=== PATIENT | male | born 1970 | race African-American/Black ===

== ENCOUNTER 2016-11-10 10:23 | Observation (INO) | payer MEDICARE, OTHER ==
[2016-11-10 10:26] VITALS: BMI 35.2
--- NOTE | 2016-11-10 11:04 | PDOC ---
History of Present Illness - General History Source: Patient Exam Limitations: No Limitations - History of Present Illness Initial Comments: 11/10/16 11:14 The patient is a 46 year old male, with a significant past medical history of hypothyroidism, HTN, and asthma, who presents to the emergency department with chest pain. The patient reports having acute onset of chest pain while sitting down about 3 days ago. The patient reports his chest pain is intermittent with episodes lasting a couple of minutes. He ranks his chest pain a 5/10 in pain intensity during the episodes, and relates left arm numbness and occasional SOB with his chest pain. He reports his chest pain is worse when he is stressed. He denies any chest pain while walking. He also notes difficulty sleeping at night secondary to pain, waking up multiple times throughout the night. He notes his chest pain is mostly localized at the left side of his chest, but notes recently his chest pain has been radiating to the right side of his chest and notes yesterday the left side of his face and jaw locked up during one of his chest pain episodes. He reports taking a baby aspirin this morning with no alleviation of his pain. He denies any pleuritic pain. He denies any recent fevers, chills, headache or dizziness. He denies any recent nausea, vomit, diarrhea or constipation. Allergies: Penicillin (hives) Past surgical history: Cardiac Stents x 3 Social History: Nonsmoker. Denies EtOH use and recreational drug use. 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 Physician: <Fabian Roy - Last Filed: 11/10/16 11:25> <Renetta Rose - Last Filed: 11/10/16 14:39> - General Stated Complaint: CHEST PAIN Time Seen by Provider: 11/10/16 10:34 Past History <Fabian Roy - Last Filed: 11/10/16 11:25> - Past Medical History Asthma: Yes Cardiac Disorders: Yes Hypercholesterolemia: Yes Seizures: No Thyroid Disease: Yes (hypothyroid) - Surgical History Cardiac Surgery: Yes (STENTS) - Immunization History Immunization Up to Date: Yes - Psycho/Social/Smoking Cessation Hx Anxiety: No Suicidal Ideation: No Smoking Status: No Smoking History: Never smoked Number of Cigarettes Smoked Daily: 0 Hx Alcohol Use: No Drug/Substance Use Hx: No Substance Use Type: None Hx Substance Use Treatment: No <Renetta Rose - Last Filed: 11/10/16 14:39> - Past Medical History Allergies/Adverse Reactions: Allergies Allergy/AdvReac Type Severity Reaction Status Date / Time Penicillins Allergy Intermediate Hives Verified 11/10/16 10:26 Home Medications: Ambulatory Orders Levothyroxine [Synthroid -] 125 mcg PO DAILY 12/16/12 Aspirin [ASA -] 81 mg PO DAILY 03/17/16 Atorvastatin Ca [Lipitor] 40 mg PO HS 03/17/16 Lisinopril [Zestril] 2.5 mg PO HS 03/17/16 Metoprolol Succinate [Toprol Xl -] 25 mg PO DAILY 03/17/16 Ticagrelor [Brilinta] 90 mg PO BID 03/17/16 Review of Systems - Review of Systems Able to Perform ROS?: Yes Comments:: 11/10/16 11:14 GENERAL/CONSTITUTIONAL: No fever or chills. No weakness. HEAD, EYES, EARS, NOSE AND THROAT: No change in vision. No ear pain or discharge. No sore throat. CARDIOVASCULAR: +chest pain w L arm numbness and shortness of breath. RESPIRATORY: No cough, wheezing, or hemoptysis. GASTROINTESTINAL: No nausea, vomiting, diarrhea or constipation. GENITOURINARY: No dysuria, frequency, or change in urination. MUSCULOSKELETAL: No joint or muscle swelling or pain. No neck or back pain. SKIN: No rash NEUROLOGIC: No headache, vertigo, loss of consciousness, or change in strength/ sensation. ENDOCRINE: No increased thirst. No abnormal weight change. HEMATOLOGIC/LYMPHATIC: No anemia, easy bleeding, or history of blood clots. ALLERGIC/IMMUNOLOGIC: No hives or skin allergy. <Fabian Roy - Last Filed: 11/10/16 11:25> *Physical Exam - Vital Signs Last Vital Signs Temp Pulse Resp BP Pulse Ox 98.0 F 85 20 132/76 98 11/10/16 10:24 11/10/16 10:24 11/10/16 10:24 11/10/16 10:24 11/10/16 10:24 - Physical Exam Comments: 11/10/16 11:14 GENERAL: Awake, alert, and fully oriented, in no acute distress HEAD: No signs of trauma EYES: PERRLA, EOMI, sclera anicteric, conjunctiva clear ENT: Auricles normal inspection, hearing grossly normal, nares patent, oropharynx clear without exudates. Moist mucosa NECK: Normal ROM, supple, no lymphadenopathy, JVD, or masses LUNGS: Breath sounds equal, clear to auscultation bilaterally. No wheezes, and no crackles HEART: Regular rate and rhythm, normal S1 and S2, no murmurs, rubs or gallops ABDOMEN: Soft, nontender, normoactive bowel sounds. No guarding, no rebound. No masses EXTREMITIES: Normal range of motion, no edema. No clubbing or cyanosis. No cords, erythema, or tenderness. No LE edema. NEUROLOGICAL: Cranial nerves II through XII grossly intact. A&O x3. Normal speech, normal gait SKIN: Warm, Dry, normal turgor, no rashes or lesions noted. <Fabian Roy - Last Filed: 11/10/16 11:25> - Vital Signs Last Vital Signs Temp Pulse Resp BP Pulse Ox 98.0 F 85 20 132/76 98 11/10/16 10:24 11/10/16 10:24 11/10/16 10:24 11/10/16 10:24 11/10/16 10:24 <Renetta Rose - Last Filed: 11/10/16 14:39> Heart Score/ECG Review - History History: Highly suspicious - Electrocardiogram EKG: Non specific repolarization disturbance - Age Age: 45-65 - Risk Factors Risk Factors Heart Score: Yes Hx Hypercholesterolemia, Yes Hx Hypertension, Yes Positive family hx of cardiac disease, Yes Hx Obesity Based on the list above the patient has:: >/=3 risk factors or Hx atherosclerotic disease - Troponin Troponin: </= normal limit - Score Heart Score - Total: 6 #1 ECG reviewed & interpreted by me at: 10:30 11/10/16 11:16 NSR, rate 80, normal axis and intervals, no SHANTEL, no significant change compared to EKG from 03/2016 <Renetta Rose - Last Filed: 11/10/16 14:39> ED Treatment Course - LABORATORY CBC & Chemistry Diagram: 11/10/16 11:41 11/10/16 11:41 <Renetta Rose Last Filed: 11/10/16 14:39> Medical Decision Making - Medical Decision Making 11/10/16 11:22 57yo M hx CAD s/p 3 stents p/w 3 days of on and off LSCP at times radiating to the R chest a/w L arm numbness at rest and with exertion. Concern for ACS vs unstable angina. Pt high risk for ACS given medical history and multiple risk factors. -cbc, bmp, lfts, trop, coags -CXR -complete dose of ASA -contact pt's roll sheeting cutter CBC,CMP WBC 7.4 K/mm3 (4.0-10.0) 11/10/16 11:41 RBC 4.84 M/mm3 (4.00-5.60) 11/10/16 11:41 Hgb 13.0 GM/dL (11.7-16.9) 11/10/16 11:41 Hct 40.5 % (35.4-49) 11/10/16 11:41 MCV 83.6 fl (80-96) 11/10/16 11:41 MCH 26.9 pg (25.7-33.7) 11/10/16 11:41 MCHC 32.2 g/dl (32.0-35.9) 11/10/16 11:41 RDW 15.8 % (11.9-15.9) 11/10/16 11:41 Plt Count 232 K/MM3 (134-434) D 11/10/16 11:41 MPV 7.7 fl (7.5-11.1) 11/10/16 11:41 Neutrophils % 55.0 % (42.8-82.8) 11/10/16 11:41 Lymphocytes % 29.8 % (8-40) D 11/10/16 11:41 Monocytes % 10.3 % (3.8-10.2) H 11/10/16 11:41 Eosinophils % 3.7 % (0-4.5) D 11/10/16 11:41 Basophils % 1.2 % (0-2.0) 11/10/16 11:41 Sodium 140 mmol/L (136-145) 11/10/16 11:41 Potassium 4.2 mmol/L (3.5-5.1) 11/10/16 11:41 Chloride 104 mmol/L (98-107) 11/10/16 11:41 Carbon Dioxide 27 mmol/L (21-32) 11/10/16 11:41 Anion Gap 9 (8-16) 11/10/16 11:41 BUN 12 mg/dL (7-18) 11/10/16 11:41 Creatinine 1.2 mg/dL (0.7-1.3) 11/10/16 11:41 Creat Clearance w eGFR > 60 (>60) 11/10/16 11:41 Random Glucose 103 mg/dL (74-106) D 11/10/16 11:41 Calcium 8.8 mg/dL (8.5-10.1) 11/10/16 11:41 Magnesium 2.0 mg/dL (1.8-2.4) 11/10/16 11:41 Total Bilirubin 0.5 mg/dL (0.2-1.0) 11/10/16 11:41 AST 28 U/L (15-37) D 11/10/16 11:41 ALT 48 U/L (12-78) D 11/10/16 11:41 Alkaline Phosphatase 74 U/L (45-117) D 11/10/16 11:41 Creatine Kinase 182 IU/L (39-308) 11/10/16 11:41 Creatine Kinase Index 0.5 % (0.0-5.0) 11/10/16 11:41 CK-MB (CK-2) < 1.000 ng/mL (0.5-3.6) 11/10/16 11:41 Troponin I < 0.02 ng/ml (0.00-0.05) 11/10/16 11:41 Total Protein 7.4 g/dl (6.4-8.2) 11/10/16 11:41 Albumin 4.0 g/dl (3.4-5.0) 11/10/16 11:41 Troponin, BNP 11/10/16 11:41 Troponin I < 0.02 11/10/16 13:54 Dr. Mckeon at the bedside, would like patient admitted for further monitoring and echo. Hospitalist paged, awaiting call back <Nassef,Jorgemna - Last Filed: 11/10/16 14:39> *DC/Admit/Observation/Transfer - Attestations Scribe Attestion: 11/10/16 11:15 Documentation prepared by Fabian Roy, acting as medical laboratory technician for Renetta Rose MD. <Fabian Roy - Last Filed: 11/10/16 11:25> - Discharge Dispostion Admit: Yes <Renetta Rose - Last Filed: 11/10/16 14:39> Diagnosis at time of Disposition: Chest pain Qualifiers: Chest pain type: unspecified Qualified Code(s): R07.9 - Chest pain, unspecified - Discharge Dispostion Condition at time of disposition: Stable - Referrals Referrals: Niecy Gaona [Primary Care Provider] -
[2016-11-10] MEDS ORDERED: ASPIRIN 81 MG CHEWABLE TABLETS PO ONE (11:09)
[2016-11-10] MEDS ORDERED: ASPIRIN 81 MG CHEWABLE TABLETS ONE (11:20)
[2016-11-10 11:44] LABS: BASOPHIL 1.2 % (0-2.0); EOSINOPHIL 3.7 % (0-4.5); MCH 26.9 pg (25.7-33.7); MCHC 32.2 g/dl (32.0-35.9); MEAN CELL VOLUME 83.6 fl (80-96); MEAN PLT VOLUME 7.7 fl (7.5-11.1); PLATELET COUNT 232 K/MM3 (134-434); RDW 15.8 % (11.9-15.9); WHITE BLOOD COUNT 7.4 K/mm3 (4.0-10.0)
[2016-11-10 11:56] LABS: INR 1.08 (0.82-1.09); PROTHROMBIN TIME (PATIENT) 11.9 SEC (9.98-11.88)
[2016-11-10 12:26] LABS: ANION GAP 9 (8-16); BILIRUBIN,TOTAL 0.5 mg/dL (0.2-1.0); CALCIUM 8.8 mg/dL (8.5-10.1); CO2 27 mmol/L (21-32); CREATININE 1.2 mg/dL (0.7-1.3); GLUCOSE,RANDOM 103 mg/dL (74-106); SGOT/AST 28 U/L (15-37); SGPT/ALT 48 U/L (12-78); TOT PROT 7.4 g/dl (6.4-8.2)
[2016-11-10 12:28] LABS: ALK PHOS 74 U/L (45-117); CPK 182 IU/L (39-308); TROPONIN I < 0.02 ng/ml (0.00-0.05)
--- NOTE | 2016-11-10 13:57 | CON.CARD ---
Consult Consult Specialty:: Cardiology Reason for Consultation:: chest pain - History of Present Illness History of Present Illness: The patient is a 46 year old male, with a significant past medical history of hypothyroidism, HTN, and asthma, who presents to the emergency department with chest pain. The patient reports having acute onset of chest pain while sitting down about 3 days ago. The patient reports his chest pain is intermittent with episodes lasting a couple of minutes. He ranks his chest pain a 5/10 in pain intensity during the episodes, and relates left arm numbness and occasional SOB with his chest pain. He reports his chest pain is worse when he is stressed. He denies any chest pain while walking. He also notes difficulty sleeping at night secondary to pain, waking up multiple times throughout the night. He notes his chest pain is mostly localized at the left side of his chest, but notes recently his chest pain has been radiating to the right side of his chest and notes yesterday the left side of his face and jaw locked up during one of his chest pain episodes. He reports taking a baby aspirin this morning with no alleviation of his pain. He denies any pleuritic pain. He denies any recent fevers, chills, headache or dizziness. He denies any recent nausea, vomit, diarrhea or constipation. Allergies: Penicillin (hives) Past surgical history: Cardiac Stents x 3 Social History: Nonsmoker. Denies EtOH use and recreational drug use. 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 80% OM2, 90% RPLS/crux. April 22, 2016 - History Source History Provided By: Patient, Medical Record - Past Medical History Cardio/Vascular: Yes: CAD, HTN, Hyperlipdemia Endocrine: Yes: Hypothyroidism - Alcohol/Substance Use Hx Alcohol Use: No - Smoking History Smoking history: Never smoked Aproximately how many cigarettes per day: 0 Home Medications - Allergies Allergies/Adverse Reactions: Allergies Allergy/AdvReac Type Severity Reaction Status Date / Time Penicillins Allergy Intermediate Hives Verified 11/10/16 10:26 - Home Medications Home Medications: Ambulatory Orders Levothyroxine [Synthroid -] 125 mcg PO DAILY 12/16/12 Aspirin [ASA -] 81 mg PO DAILY 03/17/16 Atorvastatin Ca [Lipitor] 40 mg PO HS 03/17/16 Lisinopril [Zestril] 2.5 mg PO HS 03/17/16 Metoprolol Succinate [Toprol Xl -] 25 mg PO DAILY 03/17/16 Ticagrelor [Brilinta] 90 mg PO BID 03/17/16 Review of Systems - Review of Systems Constitutional: reports: No Symptoms Eyes: reports: No Symptoms HENT: reports: No Symptoms Neck: reports: No Symptoms Cardiovascular: reports: Chest Pain Gastrointestinal: reports: No Symptoms Genitourinary: reports: No Symptoms Breasts: reports: No Symptoms Reported Musculoskeletal: reports: No Symptoms Integumentary: reports: No Symptoms Neurological: reports: No Symptoms Endocrine: reports: No Symptoms Hematology/Lymphatic: reports: No Symptoms Psychiatric: reports: No Symptoms Vital Signs: Vital Signs Temperature 98.0 F 11/10/16 10:24 Pulse Rate 85 11/10/16 10:24 Respiratory Rate 20 11/10/16 10:24 Blood Pressure 132/76 11/10/16 10:24 O2 Sat by Pulse Oximetry (%) 98 11/10/16 10:24 Constitutional: Yes: Well Nourished, No Distress, Calm Eyes: Yes: WNL, Conjunctiva Clear, EOM Intact HENT: Yes: WNL, Atraumatic, Normocephalic Neck: Yes: WNL, Supple, Trachea Midline Respiratory: Yes: WNL, Regular, CTA Bilaterally Gastrointestinal: Yes: WNL, Normal Bowel Sounds Renal/: Yes: WNL Cardiovascular: Yes: WNL, Regular Rate and Rhythm Musculoskeletal: Yes: WNL Extremities: Yes: WNL Integumentary: Yes: WNL Neurological: Yes: WNL, Alert, Oriented ...Motor Strength: WNL Psychiatric: Yes: WNL, Alert, Oriented - Other Data Labs, Other Data: CBC, BMP 11/10/16 11:41 11/10/16 11:41 INR, PTT INR 1.08 (0.82-1.09) 11/10/16 11:41 Troponin, BNP 11/10/16 11:41 Troponin I < 0.02 Troponin, BNP 11/10/16 11:41 Troponin I < 0.02 Imaging - Results Chest X-ray: Pending, Image Reviewed EKG: Image Reviewed (sr wnl) Problem List - Problems (1) Chest pain Code(s): R07.9 - CHEST PAIN, UNSPECIFIED Qualifiers: Chest pain type: unspecified Qualified Code(s): R07.9 - Chest pain, unspecified (2) Eloped Code(s): Z91.19 - PATIENT'S NONCOMPLIANCE W OTH MEDICAL TREATMENT AND REGIMEN (3) Low back pain Code(s): M54.5 - LOW BACK PAIN (4) Right groin pain Code(s): R10.30 - LOWER ABDOMINAL PAIN, UNSPECIFIED (5) SOB (shortness of breath) on exertion Code(s): R06.02 - SHORTNESS OF BREATH Assessment/Plan chest pain sx s/p PCI LCx 03/11/16 - marked improvement of his angina and angina equivalent d LAD 90% RADHA of p,m,d RCA and diffuse 30% 3VD. 80% OM2, 90% RPLS/crux. April 22, 2016 Hypertension Hyperlipidemia Hypothyroidism Plan r/o mi echo telemetry MIBI stress test in am check lipids cont DAPT
--- NOTE | 2016-11-10 15:14 | EKG ---
Test Reason : Blood Pressure : / mmHG Vent. Rate : 080 BPM Atrial Rate : 080 BPM P-R Int : 174 ms QRS Dur : 084 ms QT Int : 350 ms P-R-T Axes : 052 002 009 degrees QTc Int : 403 ms NORMAL SINUS RHYTHM NORMAL ECG WHEN COMPARED WITH ECG OF 17-MAR-2016 12:44, NO SIGNIFICANT CHANGE WAS FOUND Confirmed by STEW TSE MD ([id number]) on 11/10/2016 3:13:55 PM Referred By: Confirmed By:STEW TSE MD
--- NOTE | 2016-11-10 17:28 | HP ---
Admitting History and Physical - Admission Chief Complaint: chest pain History of Present Illness: HPI: This 46 year old male with hx of CAD stents x3, HTN, HLD, hypothroidism, asthma presented to the ED with 3 days of midsternal to left sided chest pain LUE association. The patient said for three days the pain has lingered around longer that it normal does and it feels similar to before his (sent) surgery. He did feel some dizziness as well. He takes his medications regularly, he denies fever, chills, palpitations, changes in bowel or urinary habits or weight loss. At present his chest pain is gone. 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 History of Recent Travel: No Home Medications - Allergies Allergies/Adverse Reactions: Allergies Allergy/AdvReac Type Severity Reaction Status Date / Time Penicillins Allergy Intermediate Hives Verified 11/10/16 10:26 - Home Medications Home Medications: Ambulatory Orders Levothyroxine [Synthroid -] 125 mcg PO DAILY 12/16/12 Aspirin [ASA -] 81 mg PO DAILY 03/17/16 Atorvastatin Ca [Lipitor] 40 mg PO HS 03/17/16 Lisinopril [Zestril] 5 mg PO HS 03/17/16 Metoprolol Succinate [Toprol Xl -] 25 mg PO DAILY 03/17/16 Clopidogrel Bisulfate [Plavix -] 75 mg PO DAILY 11/10/16 Review of Systems - Review of Systems Constitutional: reports: No Symptoms Eyes: reports: No Symptoms HENT: reports: No Symptoms Neck: reports: No Symptoms Cardiovascular: reports: Chest Pain Gastrointestinal: reports: No Symptoms Genitourinary: reports: No Symptoms Musculoskeletal: reports: Extremity Pain (left) Integumentary: reports: No Symptoms Neurological: reports: No Symptoms Endocrine: reports: No Symptoms Hematology/Lymphatic: reports: No Symptoms Psychiatric: reports: No Symptoms Physical Examination Vital Signs: Vital Signs Temperature 98.0 F 11/10/16 10:24 Pulse Rate 62 11/10/16 14:56 Respiratory Rate 16 11/10/16 14:56 Blood Pressure 130/85 11/10/16 14:56 O2 Sat by Pulse Oximetry (%) 100 11/10/16 15:00 Constitutional: Yes: No Distress Eyes: Yes: Conjunctiva Clear HENT: Yes: Atraumatic Neck: Yes: Supple Cardiovascular: Yes: Regular Rate and Rhythm, S1, S2 Respiratory: Yes: CTA Bilaterally, Accessory Muscle Use Gastrointestinal: Yes: Normal Bowel Sounds, Soft Renal/: Yes: WNL Musculoskeletal: Yes: WNL Extremities: Yes: WNL Edema: No Neurological: Yes: Alert, Oriented, Cran Nerves II-XII Intact Psychiatric: Yes: Alert, Oriented Imaging - Results Chest X-ray: Report Reviewed (normal), Image Reviewed EKG: Report Reviewed, Image Reviewed (NSR) Problem List - Problems (1) Chest pain Code(s): R07.9 - CHEST PAIN, UNSPECIFIED Qualifiers: Chest pain type: unspecified Qualified Code(s): R07.9 - Chest pain, unspecified (2) HTN (hypertension) Code(s): I10 - ESSENTIAL (PRIMARY) HYPERTENSION (3) CAD (coronary artery disease) Code(s): I25.10 - ATHSCL HEART DISEASE OF [place] CORONARY ARTERY W/O ANG PCTRS (4) Adult hypothyroidism Code(s): E03.9 - HYPOTHYROIDISM, UNSPECIFIED (5) HLD (hyperlipidemia) Code(s): E78.5 - HYPERLIPIDEMIA, UNSPECIFIED Assessment/Plan 46 year old male admitted with chest pain Plan: 1. Chest pain - s/p full dose asa in ED - ECHO shows lvsf normal, normal EF, trace MR, RVSF nml - Continue ASA, plavix - Telemetry monitoring - Follow serial trops - Stess test in AM - Dr. Reed seeing 2. CAD s/p stents - Continue Plavix - ASA - Metoprolol - Statin - Lipid panel 3. Hypothyroidism - Synthroid 125mcg - Check tsh 4. HTN - Lisinopril - BB 5. Nutrition - NPO afternight Visit type - Emergency Visit Emergency Visit: Yes ED Registration Date: 11/10/16 Care time: The patient presented to the Emergency Department on the above date and was hospitalized for further evaluation of their emergent condition. - New Patient This patient is new to me today: Yes Date on this admission: 11/10/16 - Critical Care Critical Care patient: No
[2016-11-10] MEDS ORDERED: morphine CARPU-JECT 4 MG/1 ML DISP.SYRIN IVPUSH PRN (17:36)
[2016-11-10] MEDS: HEPARIN NA (PORCINE) 5,000 UNITS/ML 1ML VIAL SQ SCH ×2 (18:20→21:59)
[2016-11-10 20:26] LABS: CPK 171 IU/L (39-308); TROPONIN I < 0.02 ng/ml (0.00-0.05)
[2016-11-10] MEDS ORDERED: ATORVASTATIN CA 40 MG TABLET (FP) PO SCH (22:00)
[2016-11-10] MEDS ORDERED: LISINOPRIL 5 MG TABLET (FP) PO SCH (22:00)
[2016-11-11] MEDS: HEPARIN NA (PORCINE) 5,000 UNITS/ML 1ML VIAL SQ SCH (06:12)
[2016-11-11] MEDS ORDERED: LEVOTHYROXINE NA 125 MCG TABLET (FP) PO SCH (07:00)
[2016-11-11 07:47] LABS: EOSINOPHIL 3.9 % (0-4.5); MCH 27.4 pg (25.7-33.7); MCHC 32.5 g/dl (32.0-35.9); MEAN CELL VOLUME 84.2 fl (80-96); NEUTROPHILS 52.7 % (42.8-82.8); PLATELET COUNT 236 K/MM3 (134-434); RDW 15.8 % (11.9-15.9); WHITE BLOOD COUNT 6.8 K/mm3 (4.0-10.0)
[2016-11-11 08:47] LABS: ALBUMIN 3.9 g/dl (3.4-5.0); ALK PHOS 73 U/L (45-117); ANION GAP 5 (8-16); BILIRUBIN,TOTAL 0.5 mg/dL (0.2-1.0); CALCIUM 9.1 mg/dL (8.5-10.1); CHOLESTEROL 138 mg/dL (50-200); CO2 31 mmol/L (21-32); CREATININE 1.1 mg/dL (0.7-1.3); GLUCOSE,RANDOM 89 mg/dL (74-106); LDL CHOLESTEROL (ONLY SJRH) 71 mg/dL (5-100); MAGNESIUM 2.2 mg/dL (1.8-2.4); PHOSPHOROUS 2.8 mg/dL (2.5-4.9); SGOT/AST 32 U/L (15-37); SGPT/ALT 50 U/L (12-78); TOT PROT 7.3 g/dl (6.4-8.2); TROPONIN I < 0.02 ng/ml (0.00-0.05)
[2016-11-11] MEDS ORDERED: ASPIRIN 81 MG CHEWABLE TABLETS PO SCH (10:00)
[2016-11-11] MEDS ORDERED: CLOPIDOGREL BISULFATE 75 MG TABLET (FP) PO SCH (10:00)
[2016-11-11] MEDS ORDERED: METOPROLOL SUCCINATE 25 MG TAB.SR.24H (FP) PO SCH (10:00)
--- NOTE | 2016-11-11 10:42 | PN ---
Progress Note, Physician Chief Complaint: Pt denies chest pain or dyspnea. - Current Medication List Current Medications: Active Medications Aspirin (Asa -) 81 mg PO DAILY [facility] Atorvastatin Calcium (Lipitor -) 40 mg PO HS [facility] Last Admin: 11/10/16 21:59 Dose: 40 mg Clopidogrel Bisulfate (Plavix -) 75 mg PO DAILY [facility] Heparin Sodium (Porcine) (Heparin -) 5,000 unit SQ TID [facility] Last Admin: 11/11/16 06:12 Dose: 5,000 unit Levothyroxine Sodium (Synthroid -) 125 mcg PO DAILY@0700 [facility] Last Admin: 11/11/16 06:08 Dose: Not Given Lisinopril (Prinivil) 5 mg PO HS [facility] Last Admin: 11/10/16 21:59 Dose: 5 mg Metoprolol Succinate (Toprol Xl -) 25 mg PO DAILY [facility] Morphine Sulfate (Morphine Injection -) 1 mg IVPUSH Q4H PRN PRN Reason: PAIN - Objective Vital Signs: Vital Signs Temperature 97.5 F L 11/11/16 06:00 Pulse Rate 74 11/11/16 06:00 Respiratory Rate 18 11/11/16 06:00 Blood Pressure 107/64 11/11/16 06:00 O2 Sat by Pulse Oximetry (%) 97 11/11/16 06:00 Labs: CBC, BMP 11/11/16 05:35 11/11/16 05:35 INR, PTT INR 1.08 (0.82-1.09) 11/10/16 11:41
[2016-11-11 11:51] LABS: THYROID STIMULATING HORMONE 0.28 uIU/ml (0.358-3.74)
--- NOTE | 2016-11-11 13:39 | DS ---
Physical Exam: SUBJECTIVE: Patient seen and examined he feels well he has no complaints. He mentioned his synthroid was increased to 137 4-5 months ago OBJECTIVE: Vital Signs Period Temp Pulse Resp BP Sys/Cardenas Pulse Ox Last 24 Hr 97.5 F-98.4 F 68-75 18-22 107-121/64-77 97-100 PE Neuro: alert, awake, cn 2-12intact Pulm: CTAB CV: s 1 s2 rrr no mrg Abd: s nt nd + bs Ext: warm, no le edema Laboratory Results - last 24 hr 11/10/16 11/11/16 11/11/16 18:15 05:35 05:35 WBC 6.8 RBC 4.88 Hgb 13.4 Hct 41.1 MCV 84.2 MCH 27.4 MCHC 32.5 RDW 15.8 Plt Count 236 MPV 8.0 Neutrophils % 52.7 Lymphocytes % 31.7 Monocytes % 10.7 H Eosinophils % 3.9 Basophils % 1.0 Sodium 141 Potassium 4.2 Chloride 105 Carbon Dioxide 31 Anion Gap 5 L BUN 12 Creatinine 1.1 Creat Clearance w eGFR > 60 Random Glucose 89 Calcium 9.1 Phosphorus 2.8 Magnesium 2.2 Total Bilirubin 0.5 AST 32 ALT 50 Alkaline Phosphatase 73 Creatine Kinase 171 Creatine Kinase Index 0.5 CK-MB (CK-2) < 1.000 Troponin I < 0.02 < 0.02 Total Protein 7.3 Albumin 3.9 Triglycerides 147 Cholesterol 138 D Total LDL Cholesterol 71 D HDL Cholesterol 46 TSH 0.28 L HOSPITAL COURSE: Date of Admission:11/10/16 Date of Discharge: 11/11/16 Minutes to complete discharge: 36 Discharge Summary Reason For Visit: CHEST PAIN Current Active Problems Adult hypothyroidism (Acute) CAD (coronary artery disease) (Acute) Chest pain (Acute) HLD (hyperlipidemia) (Acute) HTN (hypertension) (Acute) Hospital Course: 46 year old male with hx of CAD stents x3, HTN, HLD, hypothroidism, asthma presented to the ED with 3 days of midsternal to left sided chest pain LUE association. The patient said for three days the pain has lingered around longer that it normal does and it feels similar to before his (sent) surgery. He did feel some dizziness as well. Subsequent Hospital Course: Trops negative x3 ECHO shows lvsf normal, normal EF, trace MR, RVSF nml Stress test shows no ischemia EF 62% Home with regular home meds Change synthroid to 125mcg recheck TSH in 6 weeks, T4 pending, pt will follow up in office Discussed above with pt and Cardiology Condition: Stable - Instructions Diet, Activity, Other Instructions: Please return to the ED for any new, persistent, or worsening symptoms. Follow up with your PCP in 1 week Take medications as directed Follow up with cardiology in 1-2 weeks, follow up on T4 level Re check your TSH level in 6 weeks, your new synthroid dose is 125mcg Exercise 3-4 times/week Referrals: Niecy Gaona [Primary Care Provider] - Rui Reed MD [Staff Physician] - Disposition: HOME - Home Medications Comprehensive Discharge Medication List: Ambulatory Orders Levothyroxine [Synthroid -] 125 mcg PO DAILY 12/16/12 Aspirin [ASA -] 81 mg PO DAILY 03/17/16 Atorvastatin Ca [Lipitor] 40 mg PO HS 03/17/16 Lisinopril [Zestril] 5 mg PO HS 03/17/16 Metoprolol Succinate [Toprol XL -] 25 mg PO DAILY 03/17/16 Clopidogrel Bisulfate [Plavix -] 75 mg PO DAILY 11/10/16 Problem List - Problems (1) Chest pain Code(s): R07.9 - CHEST PAIN, UNSPECIFIED Qualifiers: Chest pain type: unspecified Qualified Code(s): R07.9 - Chest pain, unspecified (2) HTN (hypertension) Code(s): I10 - ESSENTIAL (PRIMARY) HYPERTENSION (3) CAD (coronary artery disease) Code(s): I25.10 - ATHSCL HEART DISEASE OF [place] CORONARY ARTERY W/O ANG PCTRS (4) Adult hypothyroidism Code(s): E03.9 - HYPOTHYROIDISM, UNSPECIFIED (5) HLD (hyperlipidemia) Code(s): E78.5 - HYPERLIPIDEMIA, UNSPECIFIED This patient is new to me today: No Emergency Visit: Yes ED Registration Date: 11/10/16 Care time: The patient presented to the Emergency Department on the above date and was hospitalized for further evaluation of their emergent condition. Critical Care patient: No - Discharge Referral Referred to [facility] No
[2016-11-11 13:48] VITALS: BP 121/72; PULSE 87; TEMP 98.7
== END 2016-11-11 15:48 | disposition home or self-care (01) ==
LOC: JER 10:23 → INTOOBSV 14:39 → JERBED 14:39 → UNDOADMOB 14:39 → JERBED 15:46 → J4W 15:46
PROVIDERS: ADMIT Internal Medicine; ATTEND Nurse Practitioner Acute Care
PROC: 3E013GC Introduction of Other Therapeutic Substance into Subcutaneous Tissue, Percutaneous Approach (ICD-10-PCS; principal; 2016-11-10)
DX: R07.9 Chest pain, unspecified (principal); I10 Essential (primary) hypertension; I25.10 Atherosclerotic heart disease of native coronary artery without angina pectoris; E78.5 Hyperlipidemia, unspecified; E03.9 Hypothyroidism, unspecified; J45.909 Unspecified asthma, uncomplicated; M54.5 Low back pain; R10.30 Lower abdominal pain, unspecified; R06.02 Shortness of breath; Z88.0 Allergy status to penicillin; Z79.82 Long term (current) use of aspirin; Z95.5 Presence of coronary angioplasty implant and graft; Z91.19 Patient's noncompliance with other medical treatment and regimen
CPT/HCPCS: 36415; 71020-TC; 78452-TC; 80053; 80061; 82553; 83721; 83735; 84100; 84439; 84443; 84484; 85025; 85610; 93005; 93010; 93017; 93306-TC; 99285-25; A9502; G0378; J1644

== ENCOUNTER 2017-06-17 11:17 | Emergency (ER) | payer OTHER ==
[2017-06-17 11:23] VITALS: BP 127/69; PULSE 82; TEMP 97.7; BMI 37.3
[2017-06-17] MEDS ORDERED: KETOROLAC TROMETHAMINE 30 MG/1 ML VIAL IM ONE (12:18)
[2017-06-17] MEDS ORDERED: KETOROLAC TROMETHAMINE 30 MG/1 ML VIAL ONE (12:20)
--- NOTE | 2017-06-17 12:40 | PDOC ---
History of Present Illness - General Chief Complaint: Back Pain Stated Complaint: LOWER BACK PAIN History Source: Patient Exam Limitations: No Limitations - History of Present Illness Initial Comments: 06/17/17 19:27 This 46-year-old male presented to the emergency room with complaints of lower back pain. He apparently he just recently traveled in from [place]. He had some pain after bending down about 3 days ago however got worse after the plane ride last evening. He is now complaining of pain but is not radiating down any either one of his legs. He does not recall doing any heavy lifting, bending, pulling. He states that he did not take any pain medication. Still having pain Past History - Past Medical History Allergies/Adverse Reactions: Allergies Allergy/AdvReac Type Severity Reaction Status Date / Time No Known Allergies Allergy Verified 06/17/17 11:20 Home Medications: Ambulatory Orders Aspirin [ASA -] 81 mg PO DAILY 03/17/16 Atorvastatin Ca [Lipitor] 40 mg PO HS 03/17/16 Lisinopril [Zestril] 5 mg PO HS 03/17/16 Metoprolol Succinate [Toprol XL -] 25 mg PO DAILY 03/17/16 Clopidogrel Bisulfate [Plavix -] 75 mg PO DAILY 11/10/16 Levothyroxine [Synthroid -] 125 mcg PO DAILY #60 tablet 11/11/16 Acetaminophen [Tylenol -] 500 mg PO Q6H #100 tablet 06/17/17 Cyclobenzaprine HCl [Flexeril -] 10 mg PO TID PRN #10 tablet 06/17/17 Asthma: Yes Cardiac Disorders: Yes (stents x3) COPD: No HTN: Yes Hypercholesterolemia: Yes Seizures: No Thyroid Disease: Yes (hypothyroid) - Surgical History Cardiac Surgery: Yes (STENTS) - Immunization History Immunization Up to Date: Yes - Suicide/Smoking/Psychosocial Hx Smoking Status: No Smoking History: Never smoked Have you smoked in the past 12 months: No Number of Cigarettes Smoked Daily: 0 Information on smoking cessation initiated: No Hx Alcohol Use: No Drug/Substance Use Hx: No Substance Use Type: None Hx Substance Use Treatment: No Review of Systems - Review of Systems Able to Perform ROS?: Yes Comments:: 06/17/17 19:28 General statement: Hematology: neg history of bleeding/blood thinners Skin: Neg for lesions, rash, bruising. HEENT: Neg symptoms Respiratory: Neg SOB or difficulty in breathing Cardiac: Neg chest pain GI: Neg pain, n/v : Neg problems on voiding MS: Neg for joint pain/stiffness, no edema lower back pain positive Neuro: Neg for LOC, weakness, Endocrine: Neg for excess thirst/hunger, cold/heat intolerance, excess sweating Allergies: Neg for allergies *Physical Exam - Vital Signs Last Vital Signs Temp Pulse Resp BP Pulse Ox 97.7 F 82 16 127/69 98 06/17/17 11:20 06/17/17 11:20 06/17/17 11:20 06/17/17 11:20 06/17/17 11:20 - Physical Exam Comments: 06/17/17 19:28 General Appearance: This well appearing V/S: hemodynamically stable, afebrile Skin: WNL of pt's skin color, no signs of pallor, mottling, cyanosis Head:symmetrical Eyes: EOM's intact, PERRLA Ears: denies pain Nose: patent Throat: lips, teeth, gums, tongue, buccal mucos pink and moist Lungs: Chest symmetry equal. Cap refill <3 seconds. Lung sounds clear Cardiac: PMI at R 4MCL space, pos S1 and S2, regular rate. Abdomen: Soft, round, nontender : Not observed Muscularskeletal: Gait steady, ambulated in to ER, no edema +PMS, lower back pain positive lumbar region Neuro: AAOx3, cognitively intact, speech clear and appropriate. Medical Decision Making - Medical Decision Making 06/17/17 19:29 Patient initially was seen and examined. Patient discussion about a lower back spasm presently and that he cannot do any heavy lifting, bending, pulling and I will give him some Toradol IM here as well as sent him with Flexeril since he drove here, he will pick it up at the pharmacy. He is aware of the medications and also using Tylenol and ice/heat for relief. If any further need for follow- up he should follow-up with an orthopedic. *DC/Admit/Observation/Transfer Diagnosis at time of Disposition: Low back pain Qualifiers: Chronicity: acute Back pain laterality: bilateral Sciatica presence: without sciatica Qualified Code(s): M54.5 - Low back pain - Discharge Dispostion Disposition: HOME Condition at time of disposition: Good Admit: No - Prescriptions Prescriptions: Acetaminophen [Tylenol -] 500 mg PO Q6H #100 tablet Cyclobenzaprine HCl [Flexeril -] 10 mg PO TID PRN #10 tablet PRN Reason: Back Pain - Referrals Referrals: Niecy Gaona [Primary Care Provider] - - Patient Instructions Printed Discharge Instructions: DI for Back Spasm Additional Instructions: Discharge instructions 1. Please follow up with your primary physician within the next few days and explain that you have been seen here in the Emergency Room. 2. If you experience any worsening of symptoms, please return to the ER 3. Rest, ice, spasm medications and no heavy lifting, bending, pulling 4. Drink plenty of water - Post Discharge Activity
== END 2017-06-17 12:52 | disposition home or self-care (01) ==
LOC: JERFT 11:17
PROC: 3E0233Z Introduction of Anti-inflammatory into Muscle, Percutaneous Approach (ICD-10-PCS; principal; 2017-06-17)
DX: M54.5 Low back pain (principal); I25.10 Atherosclerotic heart disease of native coronary artery without angina pectoris; I10 Essential (primary) hypertension; Z95.5 Presence of coronary angioplasty implant and graft; E78.00 Pure hypercholesterolemia, unspecified; E03.9 Hypothyroidism, unspecified
CPT/HCPCS: 96372; 99281-25

== ENCOUNTER 2018-11-24 20:26 | Observation (INO) | payer OTHER ==
--- NOTE | 2018-11-24 20:33 | PDOC ---
Rapid Medical Evaluation Chief Complaint: Chest Pain Time Seen by Provider: 11/24/18 20:29 Medical Evaluation: Allergies Allergy/AdvReac Type Severity Reaction Status Date / Time No Known Allergies Allergy Verified 06/17/17 11:20 11/24/18 20:29 I have performed a brief in-person evaluation of this patient. The patient presents with a chief complaint of: Hx 3 stents,3 days ago, CP x 7hours / burning feeling/ no resolve with rest Pertinent physical exam findings: pale, I have ordered the following: EKG The patient will proceed to the ED for further evaluation. Discharge Disposition - Diagnosis Chest pain - Referrals - Patient Instructions - Post Discharge Activity
[2018-11-24 21:05] LABS: BASO % 0.8 % (0-2.0); EOS % 4.1 % (0-4.5); HEMATOCRIT 40.9 % (35.4-49); HEMOGLOBIN 13.5 GM/dL (11.7-16.9); LYMPH % 33.8 % (8-40); MCH 28.2 pg (25.7-33.7); MCHC 32.9 g/dl (32.0-35.9); MEAN CELL VOLUME 85.8 fl (80-96); MEAN PLT VOLUME 7.7 fl (7.5-11.1); MONO % 9.8 % (3.8-10.2); NEUT % 51.5 % (42.8-82.8); PLATELET COUNT 238 K/MM3 (134-434); RBC 4.77 M/mm3 (4.00-5.60); RDW 15.9 % (11.9-15.9)
[2018-11-24 21:15] VITALS: TEMP 98; BMI 37.0
[2018-11-24 21:17] LABS: INR 1.03 (0.83-1.09); PROTHROMBIN TIME (PATIENT) 12.2 SEC (9.7-13.0)
--- NOTE | 2018-11-24 21:25 | PDOC ---
History of Present Illness - General Chief Complaint: Chest Pain Stated Complaint: chest pain Time Seen by Provider: 11/24/18 20:29 History Source: Patient Exam Limitations: No Limitations - History of Present Illness Initial Comments: 11/24/18 21:14 The patient is a 46 year old male, with a significant past medical history of hypothyroidism, HTN, and asthma, 3 cardiac stents (1x Mar 2016, 2x Apr 2016) who presents to the emergency department with chest pain. Endorses constant, non -radiating, left-sided chest pain described as "discomfort" associated with mild SOB starting at 2PM - no resolution with rest, "possibly worse with walking." Denies taking any medication for the pain. Takes Plavix and Levothyroxine daily, intermittently compliant with atorvastatin, metoprolol, and lisinopril. Denies prior GERD, association of pain with meals, recent trauma to the area or heavy lifting. No prior pain similar to this "discomfort. " He denies any pleuritic pain. He denies any recent fevers, chills, headache or dizziness. He denies any recent nausea, vomit, diarrhea or constipation. Allergies: Penicillin (hives) Past Surgical history: Cardiac Stents x 3 Social History: Nonsmoker. Denies EtOH use and recreational drug use. Family History: Cardiac Disease (paternal) Learning Technologies Specialist: Dr. Reed Primary Care Physician: None at the current time Past History - Travel Traveled outside of the country in the last 30 days: No Close contact w/someone who was outside of country & ill: No - Past Medical History Allergies/Adverse Reactions: Allergies Allergy/AdvReac Type Severity Reaction Status Date / Time No Known Allergies Allergy Verified 11/24/18 21:13 Home Medications: Ambulatory Orders Atorvastatin Ca [Lipitor] 40 mg PO HS 03/17/16 Lisinopril [Zestril] 5 mg PO HS 03/17/16 Metoprolol Succinate [Toprol XL -] 25 mg PO DAILY 03/17/16 Clopidogrel Bisulfate [Plavix -] 75 mg PO DAILY 11/10/16 Levothyroxine [Synthroid -] 125 mcg PO DAILY #60 tablet 11/11/16 Asthma: Yes Cardiac Disorders: Yes (stents x3) COPD: No HTN: Yes Hypercholesterolemia: Yes Seizures: No Thyroid Disease: Yes (hypothyroid) - Surgical History Cardiac Surgery: Yes (STENTS) - Immunization History Immunization Up to Date: Yes - Suicide/Smoking/Psychosocial Hx Smoking Status: No Smoking History: Never smoked Have you smoked in the past 12 months: No Number of Cigarettes Smoked Daily: 0 Hx Alcohol Use: No Drug/Substance Use Hx: No Substance Use Type: None Hx Substance Use Treatment: No Review of Systems - Review of Systems Able to Perform ROS?: Yes Is the patient limited Albanian proficient: No Constitutional: No: Symptoms Reported, Chills, Fever, Weakness HEENTM: No: Symptoms Reported, Throat Pain Respiratory: Yes: Shortness of Breath. No: Symptoms reported, Cough, Wheezing, Productive cough Cardiac (ROS): Yes: See HPI, Chest Pain. No: Irregular Heart Rate, Palpitations , Syncope, Chest Tightness ABD/GI: No: Symptoms Reported, Abdominal Distended, Constipated, Diarrhea, Nausea, Rectal Bleeding, Vomiting : No: Symptoms Reported, Burning, Dysuria, Pain Musculoskeletal: No: Symptoms Reported Integumentary: No: Symptoms Reported Neurological: No: Symptoms reported, Headache, Numbness, Tingling, Weakness All Other Systems: Reviewed and Negative *Physical Exam - Vital Signs Last Vital Signs Temp Pulse Resp BP Pulse Ox 98 F 73 19 170/104 H 100 11/24/18 20:30 11/24/18 20:30 11/24/18 20:30 11/24/18 20:30 11/24/18 20:30 - Physical Exam Comments: 11/24/18 21:29 Vitals reviewed, AFVSS Gen: WDWN man, appears state age, reclined on stretcher HEENT: nontraumatic, normal morphologies, EOMI, MMM, trachea midline CV: Chest nontender, RRR, normal s1/s2, no murmur or bruit appreciated Pulm: CTABL, normal WOB, no wheezes / rales / rhonchi Abd: soft, nondistended, nontender Ext: WWP, no clubbing / cyanosis / edema Pulses: 2+ radial and PT Neuro: alert and oriented, MAEE, CN grossly intact Heart Score/ECG Review - History History: Moderately suspicious - Electrocardiogram EKG: Normal - Age Age: 45-65 - Risk Factors Based on the list above the patient has:: >/=3 risk factors or Hx atherosclerotic disease - Troponin Troponin: </= normal limit - Score Heart Score - Total: 4 - ECG Intrepretation Rhythm: Regular Rhythm - [place]: Normal - P and TN Prominent R with upright T in V1 (true posterior UT): No Delta Wave(s) Present: No WPW: No - QRS Poor R Wave Progression: No Q Wave Present: No - ST and T Early Repolarization: No Non Specific ST-T Wave changes: No Flattened T Waves: No Prolonged Q-T Interval: No - ECG Impressions Normal ECG: Yes Non-specific ST Elevation: No Ischemic Changes: No Bradycardia: No ED Treatment Course - LABORATORY CBC & Chemistry Diagram: 11/24/18 21:00 11/24/18 21:00 Medical Decision Making - Medical Decision Making 11/24/18 21:35 46yo man with past medical history of hypothyroidism, HTN, and asthma, 3 cardiac stents (1x Mar 2016, 2x Apr 2016) who presents to the emergency department with chest pain. Normal EKG in triage, cardiac labs ordered. History slightly concerning (HEART Score 4) given prior stents, quality and location of pain. Physical exam unremarkable. Vitals stable. Plan for 2 troponin vs admission. PERCs out for PE, sotry not c/w dissection. Pain not reproducible on exam. Concerning for r/o ACS in pt with HEART score 4. -CMP, CBC, Cardiac Profile, Coags -EKG, CXR -SL ASA 11/24/18 21:57 -CBC, CMP, Coags all wnl -Troponin negative -Admit Tele/Obs for chest pain 11/24/18 22:27 -Patient with improved but continued chest discomfort -No Viagra use, ordered for SL nitro -MBMD sent to hospitalist 11/24/18 22:51 -Endorsed to Dr. Birmingham, admitted to Dr. Guzman, Tele/Obs *DC/Admit/Observation/Transfer Diagnosis at time of Disposition: Chest pain Qualifiers: Chest pain type: unspecified Qualified Code(s): R07.9 - Chest pain, unspecified - Discharge Dispostion Condition at time of disposition: Guarded Decision to Admit order: Yes - Referrals - Patient Instructions - Post Discharge Activity
[2018-11-24] MEDS ORDERED: ASPIRIN 81 MG CHEWABLE TABLETS PO ONE (21:38)
--- NOTE | 2018-11-24 21:38 | PDOC ---
Documentation entered by Bailey Trujillo SCRIBE, acting as scribe for Gloria Maloney MD. Gloria Maloney MD: This documentation has been prepared by the scribe, Bailey Trujillo SCRIBE, under my direction and personally reviewed by me in its entirety. I confirm that the documentation accurately reflects all work, treatment, procedures, and medical decision making performed by me. Attending Attestation - Resident Resident Name: Jass Hardwick - ED Attending Attestation I have performed the following: I have examined & evaluated the patient, The case was reviewed & discussed with the resident, I agree w/resident's findings & plan, Exceptions are as noted - HPI HPI: 11/24/18 21:30 The patient is a 48-year-old male, with a significant past medical history of hypothyroidism, HTN, asthma, 3 cardiac stent ( 1 placed in March 2016 and 2 placed in April 2016), who presents to the ED with LT- sided chest pain that began today at 2 PM. He describes the pain as constant, nonradiating, with associated shortness of breath. The patient denies any fever, chills, nausea, vomiting, diarrhea, constipation, or abdominal pain. Denies any weakness, lightheadedness, numbness or tingling. - Physicial Exam PE: 11/24/18 21:35 GENERAL: Awake, alert, and fully oriented, in no acute distress HEAD: No signs of trauma EYES: PERRLA, EOMI, sclera anicteric, conjunctiva clear ENT: Auricles normal inspection, hearing grossly normal, nares patent, oropharynx clear without exudates. Moist mucosa NECK: Normal ROM, supple, no lymphadenopathy, JVD, or masses LUNGS: Breath sounds equal, clear to auscultation bilaterally. No wheezes, and no crackles HEART: Regular rate and rhythm, normal S1 and S2, no murmurs, rubs or gallops ABDOMEN: Soft, nontender, normoactive bowel sounds. No guarding, no rebound. No masses EXTREMITIES: Normal range of motion, no edema. No clubbing or cyanosis. No cords, erythema, or tenderness NEUROLOGICAL: Cranial nerves II through XII grossly intact. Normal speech, normal gait SKIN: Warm, Dry, normal turgor, no rashes or lesions noted. - Medical Decision Making 11/24/18 21:38 CBC is normal; INR normal 11/24/18 22:47 First set of labs totally normal. Pt will be admitted for tele obs. We will obtain a 6 hr repeat cardiac enzyme, as there are no tele beds upstairs. 11/25/18 03:41 Pt got a telemetry bed and he is refusing to stay. So we darlene off a second cardiac enzyme before pt signed out AMA. @nd troponin is normal. Pt is stable to be homw. No need to call him back to the ER at this time.
[2018-11-24] MEDS ORDERED: ASPIRIN 81 MG CHEWABLE TABLETS ONE (21:44)
[2018-11-24 21:50] LABS: ALBUMIN 3.9 g/dl (3.4-5.0); ALK PHOS 72 U/L (45-117); ANION GAP 5 MMOL/L (8-16); BILIRUBIN,TOTAL 0.4 mg/dL (0.2-1); BLOOD UREA NITROGEN 9.2 mg/dL (7-18); CALCIUM 9.3 mg/dL (8.5-10.1); CHLORIDE 108 mmol/L (98-107); CO2 30 mmol/L (21-32); CREATININE 1.2 mg/dL (0.55-1.3); GLUCOSE,RANDOM 107 mg/dL (74-106); POTASSIUM 3.8 mmol/L (3.5-5.1); SGOT/AST 23 U/L (15-37); SGPT/ALT 29 U/L (13-61); SODIUM 142 mmol/L (136-145); TOT PROT 7.4 g/dl (6.4-8.2)
[2018-11-24] MEDS ORDERED: NITROGLYCERIN SUBLINGUAL 1/150 0.4 MG TAB SL ONE (22:20)
--- NOTE | 2018-11-24 23:05 | PN ---
Teaching Attending Note Name of Resident: Frank Birmingham ATTENDING PHYSICIAN STATEMENT I saw and evaluated the patient. I reviewed the resident's note and discussed the case with the resident. I agree with the resident's findings and plan as documented. SUBJECTIVE: Patient is a 46 year old man with a PMH of hypothyroidism, Penicillin allergy, HTN, Asthma and CAD with 3 cardiac stents (1x Mar 2016, 2x Apr 2016) who presents to the ER with chest pain. Endorses constant, non-radiating, left- sided chest pain described as "discomfort" associated with mild SOB starting at 2PM - no resolution with rest, "possibly worse with walking." Denies taking any medication for the pain. Takes Plavix and Levothyroxine daily, intermittently compliant with atorvastatin, metoprolol, and lisinopril. Denies prior GERD, association of pain with meals, recent trauma to the area or heavy lifting. No prior pain similar to this "discomfort." He denies any pleuritic pain. He denies any recent fevers, chills, headache or dizziness. He denies any recent nausea, vomit, diarrhea or constipation. No family history of premature CAD. Nonsmoker. Denies alcohol abuse or recreational drug use. OBJECTIVE: Alert Vital Signs Period Temp Pulse Resp BP Sys/Cardenas Pulse Ox Last 24 Hr 98 F 70-73 18-20 116-170/57-104 98-100 HEENT: No Jaundice, eye redness or discharge, PERRLA, EOMI. Normocephalic, atraumatic. External ears are normal and hearing is grossly intact. No nasal discharge. Neck: Supple, nontender. No palpable adenopathy or thyromegaly. No JVD Chest: Good effort. Clear to auscultation and percussion. Heart: Regular. No S3, rub or murmur Abdomen: Not distended, soft, nontender and no HSM. No rebound or guarding. Normal bowel sounds. Ext: Peripheral pulses intact. No leg edema. Skin: Warm and dry. No petechiae, rash or ecchymosis. Neuro: Alert. Oriented x3. CN 2-12 grossly intact. Sensation grossly intact in all four extremities and DTR are symmetric. Psych: Appropriate mood and affect. Good insight. Home Medications Medication Instructions Recorded Atorvastatin Ca [Lipitor] 40 mg PO HS 12/07/16 Lisinopril [Zestril] 5 mg PO HS 03/17/16 Metoprolol Succinate [Toprol XL -] 25 mg PO DAILY 03/17/16 Clopidogrel Bisulfate [Plavix -] 75 mg PO DAILY 11/10/16 Levothyroxine [Synthroid -] 125 mcg PO DAILY #60 tablet 11/11/16 Abnormal Lab Results 11/24/18 21:00 Chloride 108 H Anion Gap 5 L Random Glucose 107 H ASSESSMENT AND PLAN: 1. Chest pain - Now pain free. Got Aspirin 324 mg in the ER and responded to SL NTG. EKG shows NSR with no significant ST-T wave changes and initial troponin is negative. Will admit to telemetry to rule out ACS, get fasting lipids, TSH, ECHO and consult cardiology. Continue comprehensive care of all his comorbid conditions. 2. Obesity Counseled on the risks associated with obesity. Will provide patient all the necessary assistance, counseling and positive reinforcement to facilitate weight loss. Consult trenching machine operator. 3. Hypertension - Restart suitable outpatient antihypertensive drugs when clinically appropriate. Revise regimen to ensure [id number] excellent BP control and debt counselor patient on the injurious effects of uncontrolled hypertension. Nonpharmacologic measures to control hypertension like weight loss , salt restriction and exercise discussed. Importance of adherence to treatment regimen and attainment of normotension emphasized. 4. DVT prophylaxis - Lovenox 40 mg SQ q 24 hours. 5. Advance directives - Full code
--- NOTE | 2018-11-24 23:22 | HP ---
CHIEF COMPLAINT: Chest discomfort PCP: none Geospatial Information Scientist: Dr. Reed HISTORY OF PRESENT ILLNESS: Patient is a 48 yo M with a PMhx of hypothyroidism, HTN, asthma, CAD (s/p 3 stents, 2016,2017), presenting with constant, non-radiating, L sided chest discomfort that started at 2pm today. He said he felt as if he pulled a muscle. Says it was constant at rest and with exertion. He also said this discomfort does not feel like the same as the time when he needed stents. Patient was given nitroglycerin in the ED with relief of discomfort. He follows Dr. Reed. He last saw him about a month ago and said he had en echo done at that time. He denies nausea, vomiting, fevers, chills, recent illness, headache, dizziness , recent travel. ER course was notable for: (1) Trop neg x 1, ASA 324, Nitroglycerin (2) EKG NSR, no ST, T changes (3)CXR unremarkable PAST MEDICAL HISTORY: per HPI Social History: Smoking: denies Alcohol: denies Drugs: denies Family History: Allergies No Known Allergies Allergy (Verified 11/24/18 21:13) HOME MEDICATIONS: Home Medications Medication Instructions Recorded Atorvastatin Ca [Lipitor] 40 mg PO HS 03/17/16 Lisinopril [Zestril] 5 mg PO HS 03/17/16 Metoprolol Succinate [Toprol XL -] 25 mg PO DAILY 03/17/16 Clopidogrel Bisulfate [Plavix -] 75 mg PO DAILY 11/10/16 Levothyroxine [Synthroid -] 125 mcg PO DAILY #60 tablet 11/11/16 REVIEW OF SYSTEMS CONSTITUTIONAL: Absent: fever, chills, diaphoresis, generalized weakness, malaise, loss of appetite, weight change HEENT: Absent: rhinorrhea, nasal congestion, throat pain, throat swelling, difficulty swallowing, mouth swelling, ear pain, eye pain, visual changes CARDIOVASCULAR: chest pain Absent: syncope, palpitations, irregular heart rate, lightheadedness, peripheral edema RESPIRATORY: Absent: cough, shortness of breath, dyspnea with exertion, orthopnea, wheezing, stridor, hemoptysis GASTROINTESTINAL: Absent: abdominal pain, abdominal distension, nausea, vomiting, diarrhea, constipation, melena, hematochezia GENITOURINARY: Absent: dysuria, frequency, urgency, hesitancy, hematuria, flank pain, genital pain MUSCULOSKELETAL: Absent: myalgia, arthralgia, joint swelling, back pain, neck pain SKIN: Absent: rash, itching, pallor HEMATOLOGIC/IMMUNOLOGIC: Absent: easy bleeding, easy bruising, lymphadenopathy, frequent infections ENDOCRINE: Absent: unexplained weight gain, unexplained weight loss, heat intolerance, cold intolerance NEUROLOGIC: Absent: headache, focal weakness or paresthesias, dizziness, unsteady gait, seizure, mental status changes, bladder or bowel incontinence PSYCHIATRIC: Absent: anxiety, depression, suicidal or homicidal ideation, hallucinations. PHYSICAL EXAMINATION Vital Signs - 24 hr 11/24/18 11/24/18 11/24/18 20:30 21:38 23:02 Temperature 98 F Pulse Rate 73 Pulse Rate [ 70 70 Right Radial] Respiratory 19 20 18 Rate Blood Pressure 170/104 H Blood Pressure 161/86 116/57 L [Left Arm] O2 Sat by Pulse 100 100 98 Oximetry (%) GENERAL: Awake, alert, and fully oriented, in no acute distress. EYES: extraocular movements intact EARS, NOSE, THROAT: Eoropharynx clear without exudates. Moist mucous membranes. NECK: supple without lymphadenopathy, JVD, or masses. LUNGS: CTA b/l, no rales rhonchi or wheezing HEART: RRR, no murmurs appreciated, s1 s2 ABDOMEN: obese, nontender, not distended, normal bowel sounds, no guarding, no rebound LOWER EXTREMITIES: 2+ pulses, No peripheral edema. NEUROLOGICAL: Cranial nerves II-XII grossly intact. Laboratory Results - last 24 hr 11/24/18 11/24/18 11/24/18 21:00 21:00 21:00 WBC 9.0 RBC 4.77 Hgb 13.5 Hct 40.9 MCV 85.8 MCH 28.2 MCHC 32.9 RDW 15.9 Plt Count 238 MPV 7.7 Absolute Neuts (auto) 4.6 Neutrophils % 51.5 Lymphocytes % 33.8 Monocytes % 9.8 Eosinophils % 4.1 Basophils % 0.8 Nucleated RBC % 0 PT with INR 12.20 INR 1.03 Sodium 142 Potassium 3.8 Chloride 108 H Carbon Dioxide 30 Anion Gap 5 L BUN 9.2 Creatinine 1.2 Est GFR (CKD-EPI)AfAm 81.80 Est GFR (CKD-EPI)NonAf 70.58 Random Glucose 107 H Calcium 9.3 Total Bilirubin 0.4 AST 23 ALT 29 Alkaline Phosphatase 72 Creatine Kinase 260 Creatine Kinase Index No Result Required. CK-MB (CK-2) < 1.0 Troponin I < 0.02 Total Protein 7.4 Albumin 3.9 ASSESSMENT/PLAN: 48 yo M with a PMhx of hypothyroidism, HTN, asthma, CAD (s/p 3 stents, 2016,2017 ), presenting with #Chest Pain -r/o ACS -trop neg x 1, FU repeat trop -Tele monitoring -obtain recent echo from Dr. Reed -Cardiology consult given history of stents, and sparker and patcher being Dr. Reed -Given ASA 324 in ED, and nitroglycerin -NPO after midnight in case of possible cardiac intervention -lipid panel #hx of CAD -cont. statin -cont. Plavix -Given full dose asa in ED. not sure why patient is not on ASA at home. #HTN -patient on Lisinopril, Metoprolol at home but says he has not been taking it because he is "weaning" himself off BP meds. -cont. Lisinopril -BB held in case of decision for stress test. Restart if no intervention. #Hypothyroidism -TSH ordered, since patient does not have a PCP at the moment. #FEN -No iv fluids -monitor lytes -NPO after midnight in case decision for stress. #Dvt -eab tele-obs. Visit type - Emergency Visit Emergency Visit: Yes ED Registration Date: 11/24/18 Care time: The patient presented to the Emergency Department on the above date and was hospitalized for further evaluation of their emergent condition. - New Patient This patient is new to me today: Yes Date on this admission: 11/24/18 - Critical Care Critical Care patient: No ATTENDING PHYSICIAN STATEMENT I saw and evaluated the patient. I reviewed the resident's note and discussed the case with the resident. I agree with the resident's findings and plan as documented. SUBJECTIVE: OBJECTIVE: ASSESSMENT AND PLAN:
[2018-11-24 23:38] VITALS: BP 95/59; PULSE 63
[2018-11-25] MEDS ORDERED: LEVOTHYROXINE NA 125 MCG TABLET (FP) PO SCH (07:00)
[2018-11-25] MEDS ORDERED: CLOPIDOGREL BISULFATE 75 MG TABLET (FP) PO SCH (10:00)
[2018-11-25] MEDS ORDERED: LISINOPRIL 5 MG TABLET (FP) PO SCH (22:00)
[2018-11-25] MEDS ORDERED: LISINOPRIL 5 MG PO SCH (22:00)
[2018-11-25] MEDS ORDERED: ATORVASTATIN CA 40 MG TABLET (FP) PO SCH (22:00)
--- NOTE | 2018-11-26 11:39 | EKG ---
Test Reason : Blood Pressure : / mmHG Vent. Rate : 068 BPM Atrial Rate : 068 BPM P-R Int : 174 ms QRS Dur : 084 ms QT Int : 370 ms P-R-T Axes : 066 -03 008 degrees QTc Int : 393 ms POOR DATA QUALITY, INTERPRETATION MAY BE ADVERSELY AFFECTED NORMAL SINUS RHYTHM NORMAL ECG WHEN COMPARED WITH ECG OF 10-NOV-2016 10:32, NO SIGNIFICANT CHANGE WAS FOUND Confirmed by CONOR CORONADO, BRAN ([id number]) on 11/26/2018 11:38:46 AM Referred By: Confirmed By:BRAN PERDOMO MD
== END 2018-11-25 02:01 | disposition left against medical advice (07) ==
LOC: JER 20:26 → JERBED 22:05
PROVIDERS: ADMIT Internal Medicine; ATTEND Internal Medicine
DX: R07.9 Chest pain, unspecified (principal); I10 Essential (primary) hypertension; I25.10 Atherosclerotic heart disease of native coronary artery without angina pectoris; E03.9 Hypothyroidism, unspecified; E78.5 Hyperlipidemia, unspecified; J45.909 Unspecified asthma, uncomplicated; E66.9 Obesity, unspecified; Z68.37 Body mass index [BMI] 37.0-37.9, adult; Z95.5 Presence of coronary angioplasty implant and graft; Z88.0 Allergy status to penicillin
CPT/HCPCS: 36415; 71046-TC-FY; 80053; 82550; 82553; 84484; 85025; 85610; 93005; 93010; 99284-25; G0378